=== PATIENT | male | born 1965 | race Hispanic/Latino ===

== ENCOUNTER 2017-07-03 09:00 | Outpatient (AMBR) | payer MEDICAID, SELFPAY ==
--- NOTE | 2017-06-10 14:34 | ST.OIERPT ---
Office Procedures PT Procedures PT Date of Service: 06/10/17 OP PT Eval Mod Complex 30 minutes: Yes ST Evals/Treatments Date of Service ST Date of Service: 06/10/[address] Speech Eval of Prod w/Language Eval: Yes ST Outpatient G-Codes Date of Service ST Date of Service: 06/10/17 Spoken Lang/Express G-Codes/Modifiers Spoken Language Expression Current G9162: CH 0% Impaired Spoken Language Expression Projected G9163: CH 0% Impaired Spoken Language Expression Discharge G9164: CH 0% Impaired ST OP Initial Eval Patient Information Pediatric or Adult Patient: Adult PT >13 Visit Reasons: Cerebrovascular accident Medical Diagnosis: I63.8 Start of Care: 06/10/17 Date of Onset: 02/02/17 Initial Assessment Subjective: Patient arrived using a FWW and with CG. Objective: Pt. is alert and oriented X 4. Assessment: Mr. Niño is a 52 y/o male who had a stroke and spent a month at the acute in [place] due to ICH. Pt. is a good historian of his personal and health information today. Oral peripheral examination revealed all structures are WFL and appearance of facial structures are WNL with the exception of mild Labial droop. Pt. is articulate in his speech and oral communication this afternoon. He does report occasional stuttering when he is stressed. 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 Portions of the RIPA 2 and Mini-Mental were given. Pt. exhibited auditory language comprehension and expressive language to be WFL. Pt. memory for short term and director long term care was very good for stimulus items given. He demonstrates good safety awareness and is knowledgeable of his limitations. He carries his phone when he is out alone and knows emergency numbers. He is completing complex home tasks, such sorting and washing his own laundry. He is becoming independent of all ADL's as his strength and balance permits. He demonstrates good communication skills and compliance of medical regimen prescribed by his new MD. At this time Mr. Niño is a functional communicator of his basic needs and safety issues that may arise. No further ST is warranted at this time. Short Term and Motion Picture Camera Operator Goals Motion Picture Camera Operator Goals: NA Short Term Goals: NA Plan Treatment Plan: NA Frequency and Duration: NA Certification Dates: 06/10/17 CVA/TIA rt sided labial droop, not affecting eating, drinking or speaking. Current symptoms: Reports weakness (rt LE) , numbness and facial droop Most Recent Cardiac Tests: No Data to Display Current symptoms: Reports leg pain with exertion, numbness and weakness (rt LE) Medication compliance: good Medication side effects: muscle aches Type of stroke: hemorrhagic
--- NOTE | 2017-06-10 14:38 | PTNOTE_ITS ---
PT OP Initial Eval Patient Information Visit Reasons: Cerebrovascular accident Medical Diagnosis: I63.8 Treatment Dx #1: Right Side Weakness Treatment Dx #2: Gait Abnormality Start of Care: 06/10/17 Date of Onset: January 2017 Initial Assessment Subjective Pt is a 52 y/o male s/p L CVA leading to residual weakness on the right side. Pt mention that he still has difficulty performing his chores, ambulation, self care, cooking, cleaning, and ADLs. Pt was in inpatient rehab for a good month prior to getting release home. Objective Right Shoulder AROM: all motions are WFL Right Shoulder MMTs: grossly 4-/5 Right LE AROM: all motions are 75% towards end range Right LE MMTs: grossly 3/5 except ankle musculatures 3-/5 in all planes Gait Observation: increase hip flexion on the right with slight foot drop using FWW Assessment Pt demonstrate right side weakness with gait abnormality leading to decline function and difficulty with ADLs. Pt will benefit from physical therapy to increase strength, mobility, and work on ambulation. Short Term and Maintenance Mechanic Elevators Goals 1) Increase right UE MMTs to 4/5 in 12 wks to be able to perform lifting activities 2) Increase right LE MMTs to 4-/5 in 12 wks to be able to ambulate without AD 3) Increase core strength WFL in 12 wks to be able to perform chores 4) Indep with HEP Treatment Plan 1) Manual Therapy 2) Therapeutic Activities 3) Therapeutic Exercises 4) Gait Training 5) Balance Training Frequency and Duration 2 x wk for 12 wks Certification Dates: 06/10/17 to 09/09/17 Office Procedures PT Procedures PT Date of Service: 06/10/17 OP PT Eval Mod Complex 30 minutes: Yes CVA/TIA Most Recent Cardiac Tests: 2 No Data to Display
--- NOTE | 2017-06-10 14:51 | STNOTE_ITS ---
Office Procedures PT Procedures PT Date of Service: 06/10/17 OP PT Eval Mod Complex 30 minutes: Yes ST Evals/Treatments Date of Service ST Date of Service: 06/10/[address] Speech Eval of Prod w/Language Eval: Yes ST Outpatient G-Codes Date of Service ST Date of Service: 06/10/17 Spoken Lang/Express G-Codes/Modifiers Spoken Language Expression Current G9162: CH 0% Impaired Spoken Language Expression Projected G9163: CH 0% Impaired Spoken Language Expression Discharge G9164: CH 0% Impaired ST OP Initial Eval Patient Information Pediatric or Adult Patient: Adult PT >13 Visit Reasons: Cerebrovascular accident Medical Diagnosis: I63.8 Start of Care: 06/10/17 Date of Onset: 02/02/17 Initial Assessment Subjective: Patient arrived using a FWW and with CG. Objective: Pt. is alert and oriented X 4. Assessment: Mr. Niño is a 52 y/o male who had a stroke and spent a month at the acute in [place] due to ICH. Pt. is a good historian of his personal and health information today. Oral peripheral examination revealed all structures are WFL and appearance of facial structures are WNL with the exception of mild Labial droop. Pt. is articulate in his speech and oral communication this afternoon. He does report occasional stuttering when he is stressed. 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 Portions of the RIPA 2 and Mini-Mental were given. Pt. exhibited auditory language comprehension and expressive language to be WFL. Pt. memory for short term and terminal operations manager was very good for stimulus items given. He demonstrates good safety awareness and is knowledgeable of his limitations. He carries his phone when he is out alone and knows emergency numbers. He is completing complex home tasks, such sorting and washing his own laundry. He is becoming independent of all ADL' s as his strength and balance permits. He demonstrates good communication skills and compliance of medical regimen prescribed by his new MD. At this time Mr. Niño is a functional communicator of his basic needs and safety issues that may arise. No further ST is warranted at this time. Short Term and Solutions Specialist Goals Solutions Specialist Goals: NA Short Term Goals: NA Plan Treatment Plan: NA Frequency and Duration: NA Certification Dates: 06/10/17 CVA/TIA rt sided labial droop, not affecting eating, drinking or speaking. Current symptoms: Reports weakness (rt LE) , numbness and facial droop Most Recent Cardiac Tests: 2 No Data to Display Current symptoms: Reports leg pain with exertion, numbness and weakness (rt LE) Medication compliance: good Medication side effects: muscle aches Type of stroke: hemorrhagic
--- NOTE | 2017-06-19 10:32 | PTNOTE_ITS ---
PT Outpatient Daily Note Date of Service: June 19, 2017 OP Daily Note Visit Reasons: Cerebrovascular accident Outpatient Physical Therapy Treatment Date: 06/19/17 Subjective: pt doing well upon visit. pt states he has a step to go inside his home in which he fatigues. Objective: see flow sheet. Assessment: pt walked in with FWW and gait deviations of the RLE. started off with strengthening the RUE with medium resistance and pt felt it was too easy for him so increased to blue resistance in which was good tolerance. during monster walks pt tends to step further with the RLE than the LLE and cued him to take a longer step with the LLE as well. tolerated bike well and overall had no complaints. Plan: continune POC per PT. Length of Time (minutes) of Treatment: 30 Minutes Office Procedures PT Procedures PT Date of Service: 06/10/17 OP PT Eval Mod Complex 30 minutes: Yes PT Procedures PT Date of Service: 06/19/17 Therapeutic Exercise 30 minutes: Yes ST Evals/Treatments Date of Service ST Date of Service: 06/10/[address] Speech Eval of Prod w/Language Eval: Yes ST Outpatient G-Codes Date of Service ST Date of Service: 06/10/17 Spoken Lang/Express G-Codes/Modifiers Spoken Language Expression Current G9162: CH 0% Impaired Spoken Language Expression Projected G9163: CH 0% Impaired Spoken Language Expression Discharge G9164: CH 0% Impaired CVA/TIA Most Recent Cardiac Tests: 2 No Data to Display
--- NOTE | 2017-06-23 11:16 | PTNOTE_ITS ---
PT Outpatient Daily Note Date of Service: June 23, 2017 OP Daily Note Visit Reasons: Cerebrovascular accident Outpatient Physical Therapy Treatment Date: 06/23/17 Subjective: pt reported feeling achy today due to cold weather in which he does take meds to relieve the discomfort. pt is compliant with practicing the steps at home which is getting easier but fatigues as well. Objective: see flow sheet. Assessment: added foam pads to obstacle training in FWD and side stepping over the pads. pt did have difficulty with the RLE due to weakness in hip flexion as he would touch the pads a few times. pt was getting fatigue and rested in chair after the training course. advised pt to continue at home with obstacle training with assistance and pt understood. Plan: continue POC per PT. Length of Time (minutes) of Treatment: 30 Minutes Office Procedures PT Procedures PT Date of Service: 06/10/17 OP PT Eval Mod Complex 30 minutes: Yes PT Procedures PT Date of Service: 06/23/17 Therapeutic Exercise 30 minutes: Yes PT Procedures PT Date of Service: 06/19/17 Therapeutic Exercise 30 minutes: Yes ST Evals/Treatments Date of Service ST Date of Service: 06/10/[address] Speech Eval of Prod w/Language Eval: Yes ST Outpatient G-Codes Date of Service ST Date of Service: 06/10/17 Spoken Lang/Express G-Codes/Modifiers Spoken Language Expression Current G9162: CH 0% Impaired Spoken Language Expression Projected G9163: CH 0% Impaired Spoken Language Expression Discharge G9164: CH 0% Impaired CVA/TIA Most Recent Cardiac Tests: 2 No Data to Display
--- NOTE | 2017-06-25 09:32 | PTNOTE_ITS ---
PT Outpatient Daily Note Date of Service: June 25, 2017 OP Daily Note Visit Reasons: Cerebrovascular accident Outpatient Physical Therapy Treatment Date: 06/25/17 Subjective: Pt was very sore after last treatment session. Pt continues to walk 2 bouts at home. Objective: Please see flow chart for list of ther ex performed Assessment: cues to correct right toe whip during side step exercises. Pt demonstrate improvement in R LE stability allowing less knee hyperextension in stance. Pt advised to take frequent rest break however decline and continues to perform exercise consistently throughout PT session Plan: Continue with PT Length of Time (minutes) of Treatment: 30 Minutes Office Procedures PT Procedures PT Date of Service: 06/10/17 OP PT Eval Mod Complex 30 minutes: Yes PT Procedures PT Date of Service: 06/23/17 Therapeutic Exercise 30 minutes: Yes PT Procedures PT Date of Service: 06/25/17 Therapeutic Exercise 30 minutes: Yes PT Procedures PT Date of Service: 06/19/17 Therapeutic Exercise 30 minutes: Yes ST Evals/Treatments Date of Service ST Date of Service: 06/10/[address] Speech Eval of Prod w/Language Eval: Yes ST Outpatient G-Codes Date of Service ST Date of Service: 06/10/17 Spoken Lang/Express G-Codes/Modifiers Spoken Language Expression Current G9162: CH 0% Impaired Spoken Language Expression Projected G9163: CH 0% Impaired Spoken Language Expression Discharge G9164: CH 0% Impaired CVA/TIA Most Recent Cardiac Tests: 2 No Data to Display
--- NOTE | 2017-07-01 09:12 | PTNOTE_ITS ---
PT Outpatient Daily Note Date of Service: July 01, 2017 OP Daily Note Visit Reasons: Cerebrovascular accident Outpatient Physical Therapy Treatment Date: 07/01/17 Subjective: Pt mention that his walks are getting easier. Pt is able to move faster safely. Objective: Please see flow chart for list of ther ex performed Assessment: decrease R tow whip with side step as well as better controlled movement. Pt require less rest with transition to the next exercise. Pt can also transfer safely without help from sci fit to his walker. Plan: Continue with PT Length of Time (minutes) of Treatment: 30 Minutes Office Procedures PT Procedures PT Date of Service: 06/10/17 OP PT Eval Mod Complex 30 minutes: Yes PT Procedures PT Date of Service: 06/23/17 Therapeutic Exercise 30 minutes: Yes PT Procedures PT Date of Service: 06/25/17 Therapeutic Exercise 30 minutes: Yes PT Procedures PT Date of Service: 06/19/17 Therapeutic Exercise 30 minutes: Yes PT Procedures PT Date of Service: 07/01/17 Therapeutic Exercise 30 minutes: Yes ST Evals/Treatments Date of Service ST Date of Service: 06/10/[address] Speech Eval of Prod w/Language Eval: Yes ST Outpatient G-Codes Date of Service ST Date of Service: 06/10/17 Spoken Lang/Express G-Codes/Modifiers Spoken Language Expression Current G9162: CH 0% Impaired Spoken Language Expression Projected G9163: CH 0% Impaired Spoken Language Expression Discharge G9164: CH 0% Impaired CVA/TIA Most Recent Cardiac Tests: 2 No Data to Display
--- NOTE | 2017-07-03 10:00 | PTNOTE_ITS ---
PT Outpatient Daily Note Date of Service: July 03, 2017 OP Daily Note Visit Reasons: Cerebrovascular accident Outpatient Physical Therapy Treatment Date: 07/03/17 Subjective: Pt mention that walking is getting easier as well as feeling a lot stronger. Objective: Please see flow chart for list of ther ex performed Assessment: Pt was advised to continue his HEP as we get more PT sessions. Pt has been able to control his leg with a more coordinated movement. cues to decrease right upper trape with UE exercise. Plan: Continue with PT Length of Time (minutes) of Treatment: 30 Minutes Office Procedures PT Procedures PT Date of Service: 06/10/17 OP PT Eval Mod Complex 30 minutes: Yes PT Procedures PT Date of Service: 06/23/17 Therapeutic Exercise 30 minutes: Yes PT Procedures PT Date of Service: 06/25/17 Therapeutic Exercise 30 minutes: Yes PT Procedures PT Date of Service: 06/19/17 Therapeutic Exercise 30 minutes: Yes PT Procedures PT Date of Service: 07/01/17 Therapeutic Exercise 30 minutes: Yes PT Procedures PT Date of Service: 07/03/17 Therapeutic Exercise 30 minutes: Yes ST Evals/Treatments Date of Service ST Date of Service: 06/10/[address] Speech Eval of Prod w/Language Eval: Yes ST Outpatient G-Codes Date of Service ST Date of Service: 06/10/17 Spoken Lang/Express G-Codes/Modifiers Spoken Language Expression Current G9162: CH 0% Impaired Spoken Language Expression Projected G9163: CH 0% Impaired Spoken Language Expression Discharge G9164: CH 0% Impaired CVA/TIA Most Recent Cardiac Tests: 2 No Data to Display
== END 2017-07-03 10:00 | disposition home or self-care (01) ==
PROVIDERS: PCP Physician Assistant; Referring Provider Physician Assistant; Visit Provider Physician Assistant
DX: I10 Essential (primary) hypertension (principal)
CPT/HCPCS: 92523; 97110; 97162; G9162; G9163; G9164

== ENCOUNTER 2017-11-19 13:30 | Outpatient (AMBR) | payer MEDICAID, SELFPAY ==
--- NOTE | 2017-11-12 14:33 | PT.ODAYNRPT ---
PT Outpatient Daily Note Date of Service: November 12, 2017 OP Daily Note Visit Reasons: leg pain Outpatient Physical Therapy Treatment Date: 11/12/17 Subjective: Pt fell on friday while attempting some steps. Pt feels okay no pain just stiffness in the leg. Objective: Please see flow chart for list of ther ex performed Assessment: showed patient how to stretch hs and rectus femoris due to tightness. Pt had difficulty with rocker board and needed to hold on rails for balance. Plan: Continue with PT Length of Time (minutes) of Treatment: 30 Minutes Office Procedures PT Procedures PT Date of Service: 11/12/17 Therapeutic Exercise 30 minutes: Yes
--- NOTE | 2017-11-14 16:34 | PT.ODAYNRPT ---
PT Outpatient Daily Note Date of Service: November 14, 2017 OP Daily Note Visit Reasons: leg pain Outpatient Physical Therapy Treatment Date: 11/14/17 Subjective: pt reported the LLE more weak today. Objective: see flow sheet. Assessment: pt was having trouble keeping the RLE on the pedal of the bike as it kept slipping off. pt demonstrated balance instability while on the board and needed to use the rails to avoid LOB. cued pt to relax with each rep of the stretching as he tends to tense up at the knee, cuing he is able to feel the hip flexors stretching. Plan: continue POC per PT. Length of Time (minutes) of Treatment: 30 Minutes Office Procedures PT Procedures PT Date of Service: 11/12/17 Therapeutic Exercise 30 minutes: Yes PT Procedures PT Date of Service: 11/14/17 Therapeutic Exercise 30 minutes: Yes
--- NOTE | 2017-11-19 14:05 | PT.ODAYNRPT ---
PT Outpatient Daily Note Date of Service: November 19, 2017 OP Daily Note Visit Reasons: leg pain Outpatient Physical Therapy Treatment Date: 11/19/17 Subjective: Pt is walking more without his cane around the house and to community. Pt still feels off balance thats why he continues to use the cane. Objective: Please see flow chart for list of ther ex performed Assessment: decrease hamstring and rectus femoris tension. Pt continue to improve with dynamic balance allowing him to ambulate less with the use of quad cane Plan: Continue with PT Length of Time (minutes) of Treatment: 30 Minutes Office Procedures PT Procedures PT Date of Service: 11/12/17 Therapeutic Exercise 30 minutes: Yes PT Procedures PT Date of Service: 11/14/17 Therapeutic Exercise 30 minutes: Yes PT Procedures PT Date of Service: 11/19/17 Therapeutic Exercise 30 minutes: Yes
== END 2017-12-07 23:59 | disposition home or self-care (01) ==
PROVIDERS: PCP Physician Assistant; Referring Provider Physician Assistant; Visit Provider Physician Assistant
DX: I69.351 Hemiplegia and hemiparesis following cerebral infarction affecting right dominant side (principal)
CPT/HCPCS: 97110